=== PATIENT | female | born 1990 | race Caucasian/White ===

== ENCOUNTER 2018-04-18 15:54 | Emergency (ER) | END 2018-04-18 22:21 | disposition home or self-care (01) ==

== ENCOUNTER 2018-06-23 13:14 | Emergency (ER) | END 2018-06-23 16:06 | disposition home or self-care (01) ==

== ENCOUNTER 2018-06-27 10:32 | Emergency (ER) | END 2018-06-27 14:30 | disposition home or self-care (01) ==

== ENCOUNTER 2019-01-24 21:51 | Emergency (ER) | payer SELFPAY ==
[~2019-01-24] VITALS: Ht 157.5 cm; Wt 83.8 kg
[~2019-01-24 21:51] MED LIST: FERR325T5 PO; FLUO10CA17 PO; HYDR-3029 PO; LORA-441 PO
[2019-01-24 21:57] VITALS: BP 155/76; PULSE 87; RESP 20; Ht 157.5 cm; Wt 83.8 kg
== END 2019-01-25 00:18 | disposition left against medical advice (07) ==
LOC: FTE 21:51
DX: Z53.21 Procedure and treatment not carried out due to patient leaving prior to being seen by health care provider (principal)

== ENCOUNTER 2019-05-19 20:46 | Emergency (ER) | payer OTHER ==
[~2019-05-19] VITALS: Ht 157.5 cm; Wt 84.1 kg
[~2019-05-19 20:46] MED LIST changes: +MED4DP PO; +NAPR-985 PO
[2019-05-19 20:49] VITALS: Ht 157.5 cm; Wt 84.1 kg
[2019-05-19 23:30] VITALS: BP 125/60; PULSE 88; RESP 16
== END 2019-05-19 23:30 | disposition home or self-care (01) ==
LOC: FTE 20:46
DX: M54.12 Radiculopathy, cervical region (principal)
CPT/HCPCS: 81003; 81025; 82962; Z7502; 93005